=== PATIENT | female | born 1980 | race Hispanic/Latino ===

== ENCOUNTER 2020-05-20 07:59 | Day surgery (SDC) | payer OTHER ==
[~2020-05-20 07:59] MED LIST: ACETAMINOPHEN 500 MG TAB PO SCH; GABAPENTIN 300 MG CAP PO NR; LACTATED RINGERS 1,000 ML IV SCH; MIDAZOLAM 2 MG/2 ML INJ IV NR; ceFAZolin/Water 2 GM/20 ML 2 GM/20 ML SYRINGE IV NR
[2020-05-20] MEDS ORDERED: LIDOCAINE (1%) 10 MG/1 ML VIAL 20 ML MDV ONE (08:08)
[2020-05-20] MEDS ORDERED: BUPIVACAINE/PF (0.25%) 2.5 MG/ML 30 ML VIAL INFILTRATI ONE (08:08)
[2020-05-20] MEDS ORDERED: fentaNYL 100 MCG/2 ML INJ IV PRN (08:49)
--- NOTE | 2020-05-20 08:49 | Anesthesia Consultation ---
Anesthesia Consult and Med Hx Date of service: 05/20/20 - Airway Anesthetic Teeth Evaluation: Good, Chipped (broken molars bilaterally) ROM Head & Neck: Adequate Mental/Hyoid Distance: Adequate Mallampati Class: Class II Intubation Access Assessment: Probably Good - Pulmonary Exam CTA: Yes - Cardiac Exam Cardiac Exam: RRR - Pre-Operative Health Status ASA Pre-Surgery Classification: ASA2 Proposed Anesthetic Plan: General, MAC - Pre-Anesthesia Comment Pre-Anesthesia Comments: GA vs MAC pending discussion with surgeon regarding extent of intended procedure. - Pulmonary Hx Smoking: Yes (quit 9 months ago) Hx Respiratory Symptoms: No Hx Sleep Apnea: No (JENNIFER PRE SCREEN LOW RISK) - Cardiovascular System Hx Hypertension: No Hx Heart Attack/AMI: No - Central Nervous System CVA: No Hx Back Pain: Yes (CHRONIC NECK AND BACK PAIN WITH WEAKNESS PAIN TO SENDY ARMS AND LEGS) Hx Psychiatric Problems: Yes - Gastrointestinal Hx Gastroesophageal Reflux Disease: No - Endocrine Hx Renal Disease: No Hx Liver Disease: No Hx Insulin Dependent Diabetes: No Hx Non-Insulin Dependent Diabetes: No Hx Thyroid Disease: No - Other Systems Hx Obesity: No - Additional Comments Anesthesia Medical History Comments: Patient states that she was told that she her "oxygen levels dropped very low" after recent lithotripsy procedure at [facility], possibly due to undiagnosed sleep apnea. She was still able to be discharged from PACU as expected.
--- NOTE | 2020-05-20 08:49 | Anesthesia Day of Surgery ---
Anesthesia Day of Surgery - Day of Surgery Patient Examined: Yes Patient H&P Reviewed: Yes Patient is NPO: Yes
[2020-05-20] MEDS ORDERED: BACTERIOSTATIC SODIUM CHLORIDE 0.9% 30 ML VIAL INFILTRATI ONE (09:17)
[2020-05-20] MEDS ORDERED: propofoL 200 MG/20 ML VIAL IV ONE (09:59)
[2020-05-20] MEDS ORDERED: HYDROmorphone 1 MG/1 ML INJ ONE (09:59)
[2020-05-20] MEDS ORDERED: LIDOCAINE MPF (2%) 20 MG/1 ML VIAL 5 ML ONE (09:59)
[2020-05-20] MEDS ORDERED: MIDAZOLAM 2 MG/2 ML INJ ONE (10:05)
[2020-05-20] MEDS ORDERED: LIDOCAINE (1%) 10 MG/1 ML VIAL 20 ML MDV INFILTRATI ONE ×2 (10:17)
[2020-05-20] MEDS ORDERED: BUPIVACAINE/PF (0.5%) 5 MG/1 ML 30 ML VIAL INFILTRATI ONE ×2 (10:17)
[2020-05-20] MEDS ORDERED: SODIUM CHLORIDE 0.9% IRR 1,000 ML BOTTLE IR ONE (10:18)
--- NOTE | 2020-05-20 11:04 | Short Stay Summary ---
Short Stay Documentation Date of service: 05/20/20 - History Principal diagnosis: soft tissue mass right lower back H&P: obtained from office - Allergies and Medications Current Medications: Allergies No Known Allergies Allergy (Verified 05/15/20 10:21) Home Medications Medication Instructions Recorded Confirmed Last Taken Type Escitalopram [Lexapro] 10 mg PO DAILY 05/15/20 05/15/20 05/19/20 History Hydrocodone Bitartrate [Zohydro ER] 20 mg PO PRN PRN 05/15/20 05/15/20 05/19/20 History Pantoprazole [Protonix TAB] 20 mg QDAY 05/15/20 05/15/20 05/19/20 History Sucralfate [Carafate] 1 gm PO BID 05/15/20 05/15/20 05/19/20 History Tamsulosin [Flomax] 0.4 mg PO QDAY 05/15/20 05/15/20 05/19/20 History hydrOXYzine HCL [Atarax] 25 mg PO Q6HR PRN 05/15/20 05/15/20 05/19/20 History Adalimumab [Humira] 40 mg SQ Q2W 05/20/20 05/20/20 05/18/20 History Active Medications Acetaminophen (Tylenol) 1,000 mg PO PREOP FABIOLA Stop: 05/20/20 23:59 Last Admin: 05/20/20 09:16 Dose: 1,000 mg Documented by: Fentanyl (Sublimaze) 50 mcg IV Q5MIN PRN PRN Reason: Pain , Severe (7-10) Stop: 05/20/20 23:00 Gabapentin (Gabapentin) 300 mg PO PREOP NR Stop: 05/20/20 23:59 Last Admin: 05/20/20 09:16 Dose: 300 mg Documented by: Cefazolin Sodium (Ancef/Sterile Water 2 Gm/20 Ml) 2 gm in 20 mls @ 80 mls/hr IV PREOP NR Stop: 05/20/20 18:00 Lactated Ringer's (Lactated Ringers) 1,000 mls @ 100 mls/hr IV DIRECT FABIOLA Stop: 05/20/20 23:59 Last Admin: 05/20/20 09:20 Dose: 100 mls/hr Documented by: Midazolam HCl (Versed) 2 mg IV PREOP NR Stop: 05/20/20 23:59 Last Admin: 05/20/20 09:34 Dose: 2 mg Documented by: - Brief post op/procedure progress note Date of procedure: 05/20/20 Pre-op diagnosis: soft tissue mass right lower back Post-op diagnosis: same Procedure: excision soft tissue mass right lower back Anesthesia: MAC, local Findings: 2 cm soft tissue mass, fatty, right lower back Surgeon: SIMONA DUVALL Estimated blood loss: minimal Pathology: list (soft tissue mass right lower back) Specimen disposition: to lab Condition: stable - Hospital course Hospital course: Pt observed in PACU and discharged to home in stable condition when criteria met - Disposition Condition at discharge: Good Disposition: [id number] TO HOME OR SELFCARE Short Stay Discharge Plan Activity: avoid flexion Diet: regular Wound: open to air, per your surgeon's advice Additional Instructions: May shower tomorrow, pat incisions dry, do not scrub. Follow up with: DR HALEY [Other] - 7 Days SIMONA DUVALL DO [Staff Physician] - 14 Days Prescriptions: HYDROcodone/APAP 5-325 [[place] 5/325] 1 each PO Q6HR PRN #10 tablet PRN Reason: Pain
--- NOTE | 2020-05-20 12:55 | Operative Report ---
Operative Report Operative Report: Date of procedure: 05/20/20 Pre-op diagnosis: soft tissue mass right lower back Post-op diagnosis: same Procedure: excision soft tissue mass right lower back Anesthesia: MAC, local Findings: 2 cm soft tissue mass, fatty, right lower back Surgeon: SIMONA DUVALL Estimated blood loss: minimal Pathology: list (soft tissue mass right lower back) Specimen disposition: to lab Condition: stable Hospital course: Pt observed in PACU and discharged to home in stable condition when criteria met HPI and Indication: Patient is a 40-year-old female who presented to the office for a workup of a painful right lower back mass. And outpatient ultrasound was reviewed which showed a possible lipoma in the area. The patient was set up for an elective excision. After all risks were discussed and questions answered, consent was signed in the office. Procedure in detail: Patient was identified in the preoperative area and the area of the mass palpated/identified by the patient and subsequently marked by the surgeon. She was then taken back to the operating room, placed on the operating room table in prone position. After anesthesia was induced, the right lower back was prepped and draped in usual sterile fashion and a timeout was per formed. Local anestheticwas injected into the skin at the intended incision site. A 3 cm transverse incision was made in the skin over the mass using a 15 blade. Dissection was carried down through the skin using electrocautery. The mass was identified and was slightly firmer than the surrounding subcutaneous tissue. Using a combination of blunt dissection with a hemostat and electrocautery, the mass was carefully dissected away from the surrounding tissue circumferentially. Once normal fatty tissue was identified the mass in its entirety was removed from the subcutaneous tissue using Bovie electrocautery. The mass appeared to be lobulated and fatty consistent with a lipoma. This was then passed off the table as a specimen. The mass measured approximately 2 cm. The wound was then irrigated and hemostasis achieved with electrocautery. Once hemostasis was ensured, the deep layer was closed using interrupted 3-0 Vicryl sutures. The skin was closed with 4-0 Monocryl subcuticular stitches and skin glue. At the end of the case, all sponge, instrument, sharp counts were correct 2. The patient was awoken from anesthesia and taken to PACU in stable condition.
[2020-05-20 13:12] VITALS: BP 115/85
--- NOTE | 2020-05-20 13:17 | Post Anesthesia Evaluation ---
- Post Anesthesia Evaluation Patient Participated: Yes Airway Patent: Yes Stable Respiratory Function: Yes Nausea/Vomiting: No Temp > 96.8F: Yes Pain Manageable: Yes Adequeate Hydration: Yes Anesthesia Complications: No
== END 2020-05-20 13:00 | disposition home or self-care (01) ==
LOC: OR 07:59
PROVIDERS: ATTEND Surgery
DX: M79.89 Other specified soft tissue disorders (principal); Z20.828 Contact with and (suspected) exposure to other viral communicable diseases; D17.1 Benign lipomatous neoplasm of skin and subcutaneous tissue of trunk; G43.909 Migraine, unspecified, not intractable, without status migrainosus; K21.9 Gastro-esophageal reflux disease without esophagitis; F32.9 Major depressive disorder, single episode, unspecified; F41.9 Anxiety disorder, unspecified; Z87.891 Personal history of nicotine dependence; Z98.890 Other specified postprocedural states; Z87.442 Personal history of urinary calculi; Z87.440 Personal history of urinary (tract) infections; Z98.891 History of uterine scar from previous surgery; Z79.899 Other long term (current) drug therapy
CPT/HCPCS: 21930; 81025; 88307; J0690; J1170; J2250; J2704; J7120; U0003